=== PATIENT | male | born 1945 | race Caucasian/White ===

== ENCOUNTER 2016-11-13 07:13 | Day surgery (SDC) | payer MEDICAID, OTHER ==
[~2016-11-13] VITALS: Ht 172.7 cm; Wt 103.6 kg
[~2016-11-13 07:13] MED LIST: ACET-66 PO; ALLO100T PO; ATOR40TA28 PO; BESIFLOXACIN HCL 0.6% 5 ML OPHTHALMIC SUSPENSION OS ONE; BUME1TAB30 PO; CARV3 PO; CLON1 PO; DICLOFENAC SODIUM 0.1% 2.5 ML OPHTHALMIC SOLUTION OS ONE; FERR-89 PO; FLUT16H NASAL; GABA-531 PO; HYDR25 PO; ISOS60TA4 PO; KDUR10 PO; PANT40TA25 PO; RINGERS SOLUTION,LACTATED 500 ML IV ONE; SODI650T PO
[2016-11-13] MEDS ORDERED: DICLOFENAC SODIUM 0.1% 2.5 ML OPHTHALMIC SOLUTION ONE (07:56)
[2016-11-13] MEDS ORDERED: BESIFLOXACIN HCL 0.6% 5 ML OPHTHALMIC SUSPENSION ONE (07:56)
[2016-11-13] MEDS ORDERED: PHENYLEPHRINE HCL 2.5% 2 ML OPHTHALMIC SOLUTION ONE (07:56)
[2016-11-13] MEDS ORDERED: TROPICAMIDE 1% 2 ML OPHTHALMIC SOLUTION ONE (07:56)
[2016-11-13] MEDS ORDERED: RINGERS SOLUTION,LACTATED 500 ML IV ONE (07:56)
[2016-11-13 08:37] LABS: GLUCOSE COMMENT 1 Doctor Notified; GLUCOSE,POINT OF CARE 175 MG/DL (70-110)
[2016-11-13] MEDS: TROPICAMIDE 1% 2 ML OPHTHALMIC SOLUTION OS SCH ×2 (08:43→08:53)
[2016-11-13] MEDS: PHENYLEPHRINE HCL 2.5% 2 ML OPHTHALMIC SOLUTION OS SCH ×2 (08:44→08:53)
[2016-11-13] MEDS ORDERED: TETRACAINE HCL VISCOUS 0.5% 0.6 ML OPHTHALMIC SOLUTION OS ONE (12:00)
[2016-11-13] MEDS ORDERED: HYALURONATE SODIUM 12 MG/ML 0.8 ML SYRINGE IO ONE (12:00)
[2016-11-13] MEDS ORDERED: HYALURONATE SOD/CHONDROITIN SOD 0.5 ML VIAL IO ONE (12:00)
[2016-11-13] MEDS ORDERED: DEXAMETHASONE SOD PHOS 4 MG/ML VIAL IVP ONE (12:00)
[2016-11-13] MEDS ORDERED: FentaNYL CITRATE-PF 100 MCG/2 ML VIAL IVP ONE (12:00)
[2016-11-13] MEDS ORDERED: MIDAZOLAM HCL 2 MG/2 ML VIAL IVP ONE (12:00)
[2016-11-13] MEDS ORDERED: LIDOCAINE HCL/PF 1% 2 ML VIAL INJ ONE (12:00)
[2016-11-13] MEDS ORDERED: EPINEPHrine 1:1,000 [1 MG/ML] AMP IVP ONE (12:00)
[2016-11-13] MEDS ORDERED: POVIDONE-IODINE 10% 15 ML SOLUTION UD TP ONE (12:00)
== END 2016-11-13 12:10 | disposition home or self-care (01) ==
LOC: SURGERY 07:13
PROVIDERS: ATTEND Specialist
DX: E11.36 Type 2 diabetes mellitus with diabetic cataract (principal); H25.012 Cortical age-related cataract, left eye; E78.00 Pure hypercholesterolemia, unspecified; I11.0 Hypertensive heart disease with heart failure; I50.9 Heart failure, unspecified; M19.90 Unspecified osteoarthritis, unspecified site; D64.9 Anemia, unspecified; F10.21 Alcohol dependence, in remission; Z95.0 Presence of cardiac pacemaker
CPT/HCPCS: 66984; 82962; 93005; C1780; J7120; J0171; J1100; J2250; J3010; J3490

== ENCOUNTER 2016-12-18 05:37 | Day surgery (SDC) | payer OTHER ==
[~2016-12-18] VITALS: Ht 170.2 cm; Wt 79.1 kg
[~2016-12-18 05:37] MED LIST changes: -BESIFLOXACIN HCL 0.6% 5 ML OPHTHALMIC SUSPENSION OS ONE; -DICLOFENAC SODIUM 0.1% 2.5 ML OPHTHALMIC SOLUTION OS ONE; -FERR-89 PO; +FERS325 PO; +FentaNYL CITRATE-PF 100 MCG/2 ML VIAL IVP ONE; +MIDAZOLAM HCL 2 MG/2 ML VIAL IVP ONE; -RINGERS SOLUTION,LACTATED 500 ML IV ONE
[2016-12-18] MEDS ORDERED: DICLOFENAC SODIUM 0.1% 2.5 ML OPHTHALMIC SOLUTION OD ONE (06:00)
[2016-12-18] MEDS ORDERED: RINGERS SOLUTION,LACTATED 500 ML IV ONE ×2 (06:00→09:02)
[2016-12-18] MEDS ORDERED: MOXIFLOXACIN HCL 0.5% 3 ML OPHTHALMIC SOLUTION OD ONE (06:00)
[2016-12-18] MEDS ORDERED: DICLOFENAC SODIUM 0.1% 2.5 ML OPHTHALMIC SOLUTION ONE (09:01)
[2016-12-18] MEDS ORDERED: TROPICAMIDE 1% 2 ML OPHTHALMIC SOLUTION ONE (09:01)
[2016-12-18] MEDS ORDERED: PHENYLEPHRINE HCL 2.5% 2 ML OPHTHALMIC SOLUTION ONE (09:01)
[2016-12-18] MEDS ORDERED: MOXIFLOXACIN HCL 0.5% 3 ML OPHTHALMIC SOLUTION ONE (09:01)
[2016-12-18] MEDS ORDERED: PROP10DR4 OU (09:33)
[2016-12-18] MEDS ORDERED: ISOS30TA6 PO (09:33)
[2016-12-18] MEDS ORDERED: EPOE10I IVP (09:33)
[2016-12-18] MEDS ORDERED: CALC25 PO (09:33)
[2016-12-18] MEDS ORDERED: PREDAOS OS (09:34)
[2016-12-18] MEDS: TROPICAMIDE 1% 2 ML OPHTHALMIC SOLUTION OD SCH ×2 (10:22→10:30)
[2016-12-18] MEDS: PHENYLEPHRINE HCL 2.5% 2 ML OPHTHALMIC SOLUTION OD SCH ×2 (10:23→10:30)
[2016-12-18 10:27] LABS: GLUCOSE,POINT OF CARE 188 MG/DL (70-110)
[2016-12-18] MEDS ORDERED: EPINEPHrine 1:1,000 [1 MG/ML] AMP SQ ONE (21:32)
[2016-12-18] MEDS ORDERED: LIDOCAINE HCL/PF 1% 2 ML VIAL IM ONE (21:32)
[2016-12-18] MEDS ORDERED: HYALURONATE SODIUM 12 MG/ML 0.8 ML SYRINGE IO ONE (21:32)
[2016-12-18] MEDS ORDERED: TETRACAINE HCL VISCOUS 0.5% 0.6 ML OPHTHALMIC SOLUTION OD ONE (21:32)
[2016-12-18] MEDS ORDERED: HYALURONATE SOD/CHONDROITIN SOD 0.5 ML VIAL IO ONE (21:32)
[2016-12-18] MEDS ORDERED: DEXAMETHASONE SOD PHOS 4 MG/ML VIAL IVP ONE (21:32)
[2016-12-18] MEDS ORDERED: POVIDONE-IODINE 10% 15 ML SOLUTION UD TP ONE (21:32)
== END 2016-12-18 13:45 | disposition home or self-care (01) ==
LOC: SURGERY 05:37
PROVIDERS: ATTEND Specialist
DX: E11.36 Type 2 diabetes mellitus with diabetic cataract (principal); I10 Essential (primary) hypertension; E78.00 Pure hypercholesterolemia, unspecified; M19.90 Unspecified osteoarthritis, unspecified site; Z95.0 Presence of cardiac pacemaker; F17.210 Nicotine dependence, cigarettes, uncomplicated
CPT/HCPCS: 66984; 82962; C1780; J0171; J1100; J2250; J3010; J3490 ×2; J7120; 99152; 99153